=== PATIENT | female | born 2000 | race Caucasian/White ===

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

== ENCOUNTER 2020-09-26 12:32 | Emergency (ER) | payer SELFPAY ==
[~2020-09-26] VITALS: Ht 172 cm; Wt 82.7 kg
--- NOTE | 2020-09-26 13:10 | ED Neurological Problem ---
General Chief Complaint: Overdose Stated Complaint: OD Source: patient Exam Limitations: no limitations (LAUREN SHEPPARD APRN) History of Present Illness Date Seen by Provider: Sep 26, 2020 Time Seen by Provider: 13:08 Initial Comments To ER by private vehicle from [facility] where she presented with reports of a headache. She has a history of headaches. Yesterday evening she took allegedly 24 of the 325 mg aspirin in an attempt to control the headache. History of von Willebrand disease. Today complains of ear fullness and persistent headache with nausea. Refers to be called "[place]" and identifies as a male. Timing/Duration: 24 hours Severity: moderate Associated Symptoms: No confusion; nausea/vomiting, ringing in ears (LAUREN SHEPPARD APRN) Allergies and Home Medications Allergies Coded Allergies: escitalopram (Verified Adverse Reaction, Unknown, hallucinations, 05/17/16) Home Medications Ondansetron 4 Mg Tab.rapdis, 4 MG PO Q4H PRN for NAUSEA/VOMITING Prescribed by: SUHAS HUDSON on 08/24/19 0224 Patient Home Medication List Home Medication List Reviewed: Yes (LAUREN SHEPPARD APRN) Review of Systems Review of Systems Constitutional: see HPI Eyes: No Symptoms Reported Ears, Nose, Mouth, Throat: no symptoms reported Respiratory: no symptoms reported Gastrointestinal: nausea Genitourinary: no symptoms reported Musculoskeletal: no symptoms reported Skin: no symptoms reported Psychiatric/Neurological: No Symptoms Reported (LAUREN SHEPPARD APRN) Past Ttdblvy-Kkvugk-Oduvxp Hx Patient Social History 2nd Hand Smoke Exposure: No Recent Hopitalizations: No (LAUREN SHEPPARD APRN) Immunizations Up To Date Tetanus Booster (TDap): Less than 5yrs PED Vaccines UTD: Yes Date of Influenza Vaccine: Feb 08, 2016 (LAUREN SHEPPARD APRN) Seasonal Allergies Seasonal Allergies: No (LAUREN SHEPPARD APRN) Past Medical History Surgeries: Yes Tonsillectomy Respiratory: No Cardiac: No Neurological: No Reproductive Disorders: Yes (gender transitioning) Sexually Transmitted Disease: No HIV/AIDS: No Genitourinary: No Gastrointestinal: No Musculoskeletal: No Endocrine: No HEENT: No Cancer: No Psychosocial: Yes ADD/ADHD, Suicide Attempts, Bipolar, Depression Integumentary: No Blood Disorders: Yes Adverse Reaction/Blood Tranf: No (LAUREN SHEPPARD APRN) Physical Exam Vital Signs Vital Signs - First Documented 09/26/20 12:41 Temp 36.6 Pulse 92 Resp 18 B/P (MAP) 105/81 (89) Pulse Ox 99 O2 Delivery Room Air (SUHAS ROBLES MD) Vital Signs Capillary Refill : (LAUREN SHEPPARD APRN) Height, Weight, BMI Height: 5'6.00" Weight: 200lbs. oz. 90.285714fd; 28.00 BMI Method:Stated General Appearance: WD/WN, no apparent distress, other (alert and oriented GCS 15 pleasant no distress no vomiting laughing and joking with her friend at the bedside the all) HEENT: PERRL/EOMI, normal ENT inspection Neck: non-tender, full range of motion Respiratory: normal breath sounds, no respiratory distress, no accessory muscle use Cardiovascular: regular rate, rhythm, no murmur Gastrointestinal: normal bowel sounds, non tender, soft Extremities: normal range of motion, non-tender Neurologic/Psychiatric: alert, normal mood/affect, oriented x 3 Crainal Nerves: normal hearing, normal speech, PERRL Skin: normal color, warm/dry (LAUREN SHEPPARD APRN) Progress/Results/Core Measures Results/Orders Lab Results Laboratory Tests Test 09/26/20 13:05 09/26/20 13:25 09/26/20 13:33 09/26/20 15:41 Range/Units Blood Gas Puncture Site NA Blood Gas Patient Temperature NA Arterial Blood pH 7.46 H 7.37-7.43 Arterial Blood Partial Pressure CO2 29 L 35-45 MMHG Arterial Blood Partial Pressure O2 115 H 79-93 MMHG Arterial Blood HCO3 20 L 23-27 MMOL/L Arterial Blood Total CO2 20.8 L 21.0-31.0 MMOL/L Arterial Blood Oxygen Saturation 99 94-100 % Arterial Blood Base Excess -3.3 L -2.5-2.5 MMOL/L Yang Test NA Blood Gas Ventilator Setting NA Blood Gas Inspired Oxygen NA Sodium Level 144 135-145 MMOL/L Potassium Level 3.6 3.6-5.0 MMOL/L Chloride Level 110 H 98-107 MMOL/L Carbon Dioxide Level 19 L 21-32 MMOL/L Anion Gap 15 H 5-14 MMOL/L Blood Urea Nitrogen 10 7-18 MG/DL Creatinine 0.83 0.60-1.30 MG/DL Estimat Glomerular Filtration Rate > 60 BUN/Creatinine Ratio 12 Glucose Level 85 70-105 MG/DL Calcium Level 9.1 8.5-10.1 MG/DL Corrected Calcium 9.0 8.5-10.1 MG/DL Total Bilirubin 0.4 0.1-1.0 MG/DL Aspartate Amino Transf (AST/SGOT) 13 5-34 U/L Alanine Aminotransferase (ALT/SGPT) 13 0-55 U/L Alkaline Phosphatase 48 40-136 U/L Total Protein 6.8 6.4-8.2 GM/DL Albumin 4.1 3.2-4.5 GM/DL Serum Test, Qualitative NEGATIVE NEGATIVE Salicylates Level 29.2 H 24.0 H 5.0-20.0 MG/DL Acetaminophen Level < 10 L 10-30 UG/ML Serum Alcohol < 10 <10 MG/DL White Blood Count 11.5 H 4.3-11.0 10^3/uL Red Blood Count 4.30 3.80-5.11 10^6/uL Hemoglobin 13.6 11.5-16.0 g/dL Hematocrit 39 35-52 % Mean Corpuscular Volume 91 80-99 fL Mean Corpuscular Hemoglobin 32 25-34 pg Mean Corpuscular Hemoglobin Concent 35 32-36 g/dL Red Cell Distribution Width 11.9 10.0-14.5 % Platelet Count 243 130-400 10^3/uL Mean Platelet Volume 11.5 9.0-12.2 fL Immature Granulocyte % (Auto) 0 % Neutrophils (%) (Auto) 85 H 42-75 % Lymphocytes (%) (Auto) 10 L 12-44 % Monocytes (%) (Auto) 5 0-12 % Eosinophils (%) (Auto) 0 0-10 % Basophils (%) (Auto) 0 0-10 % Neutrophils # (Auto) 9.7 H 1.8-7.8 X 10^3 Lymphocytes # (Auto) 1.2 1.0-4.0 X 10^3 Monocytes # (Auto) 0.6 0.0-1.0 X 10^3 Eosinophils # (Auto) 0.0 0.0-0.3 10^3/uL Basophils # (Auto) 0.0 0.0-0.1 10^3/uL Immature Granulocyte # (Auto) 0.0 0.0-0.1 10^3/uL Urine Color YELLOW Urine Clarity SL CLOUDY Urine pH 6.0 5-9 Urine Specific [place] 1.020 1.016-1.022 Urine Protein 1+ H NEGATIVE Urine Glucose (UA) NEGATIVE NEGATIVE Urine Ketones 3+ H NEGATIVE Urine Nitrite NEGATIVE NEGATIVE Urine Bilirubin NEGATIVE NEGATIVE Urine Urobilinogen 0.2 < = 1.0 MG/DL Urine Leukocyte Esterase NEGATIVE NEGATIVE Urine RBC (Auto) NEGATIVE NEGATIVE Urine RBC NONE /HPF Urine WBC 0-2 /HPF Urine Squamous Epithelial Cells 0-2 /HPF Urine Crystals NONE /LPF Urine Bacteria TRACE /HPF Urine Casts NONE /LPF Urine Mucus NEGATIVE /LPF Urine Culture Indicated NO Urine Opiates Screen NEGATIVE NEGATIVE Urine Oxycodone Screen NEGATIVE NEGATIVE Urine Methadone Screen NEGATIVE NEGATIVE Urine Propoxyphene Screen NEGATIVE NEGATIVE Urine Barbiturates Screen NEGATIVE NEGATIVE Ur Tricyclic Antidepressants Screen NEGATIVE NEGATIVE Urine Phencyclidine Screen NEGATIVE NEGATIVE Urine Amphetamines Screen NEGATIVE NEGATIVE Urine Methamphetamines Screen NEGATIVE NEGATIVE Urine Benzodiazepines Screen NEGATIVE NEGATIVE Urine Cocaine Screen NEGATIVE NEGATIVE Urine Cannabinoids Screen NEGATIVE NEGATIVE Test 09/26/20 16:08 09/26/20 16:44 Range/Units Blood Gas Puncture Site RIGHT RADIAL Blood Gas Patient Temperature 97.7 Arterial Blood pH 7.43 7.37-7.43 Arterial Blood Partial Pressure CO2 29 L 35-45 MMHG Arterial Blood Partial Pressure O2 109 H 79-93 MMHG Arterial Blood HCO3 19 L 23-27 MMOL/L Arterial Blood Total CO2 19.7 L 21.0-31.0 MMOL/L Arterial Blood Oxygen Saturation 99 94-100 % Arterial Blood Base Excess -4.8 L -2.5-2.5 MMOL/L Yang Test YES-POS Blood Gas Ventilator Setting NO Blood Gas Inspired Oxygen ROOM AIR Prothrombin Time 14.8 H 12.2-14.7 SEC INR Comment 1.1 0.8-1.4 (SUHAS ROBLES MD) Vital Signs/I&O 09/26/20 09/26/20 12:41 17:33 Temp 36.6 Pulse 92 9 Resp 18 18 B/P (MAP) 105/81 (89) 104/78 Pulse Ox 99 100 O2 Delivery Room Air Room Air (SUHAS ROBLES MD) Progress Progress Note : Progress Note NAME: JULITO CORREA [facility] REC#: [id number] PT STATUS: REG ER : 2000 PHYSICIAN: LAUREN SHEPPARD APRN ADMIT DATE: 09/26/20/ER Draft Date of Exam:09/26/20 CT HEAD WO PROCEDURE: CT head without contrast. TECHNIQUE: Multiple contiguous axial images were obtained through the brain without the use of intravenous contrast. Auto Exposure Controls were utilized during the CT exam to meet ALARA standards for radiation dose reduction. INDICATION: Headache. History of bleeding disorder. Recent extensive aspirin ingestion. CORRELATION STUDY: None FINDINGS: The ventricles and sulci appearing unremarkable. Normal robledo-white differentiation is suggested. No definitive evidence for edema. No intracranial hemorrhage. Slightly low-lying cerebellar tonsils are present. Basilar cisterns are maintained. Bony calvarium is intact. Paranasal sinuses, probable cyst or polyp in the left maxillary sinus. IMPRESSION: 1. Negative for acute intracranial abnormality. Slightly low-lying cerebellar tonsils, mild Chiari malformation is not excluded. Consideration might be given to follow-up with MRI of the brain. Dictated on workstation # [id number] Dict: 09/26/20 1402 Trans: 09/26/20 1407 [facility] [id number] Interpreted by: ABRIL LOCK DO Electronically signed by: (LAUREN SHEPPARD APRN) Progress Note : Progress Note I was physically present in the emergency department as attending physician during the care of this patient, but I was not directly involved in this patient's care. (SUHAS ROBLES MD) Departure Communication (Admissions) [id number]/w [facility]a [place] from Poison Control. Recommends PT/INR then dc to home if richard. (LAUREN SHEPPADR APRN) Impression Primary Impression: Headache Qualified Codes: R51.9 - Headache, unspecified Additional Impression: Medication overdose Qualified Codes: T50.904A - Poisoning by unspecified drugs, medicaments and biological substances, undetermined, initial encounter Disposition: 01 HOME, SELF-CARE Condition: Stable Departure-Patient Inst. Decision time for Depature: 16:40 (LAUREN SHEPPARD APRN) Referrals: [facility] (PCP/Family) Primary Care Physician Add. Discharge Instructions: 1. Return to Er for any concerns 2. DO NOT TAKE ASPIRIN OR IBUPROFEN WITH YOUR VON WILLEBRANDS 3. Be careful with knives/shaving as you will bleed longer than usual given your von willebrands and the aspirin use. All discharge instructions reviewed with patient and/or family. Voiced understanding. Attending Physician Note: I was physically present in the emergency department as attending physician during the care of this patient, but I was not directly involved in this p atient's care. (SUHAS ROBLES MD) LAUREN SHEPPARD APRN Sep 26, 2020 13:10 SUHAS ROBLES MD Sep 27, 2020 10:02
[2020-09-26 13:15] LABS: ABG BASE EXCESS -3.3 MMOL/L (-2.5-2.5); ABG OXYGEN SATURATION 99 % (94-100); ABG PCO2 29 MMHG (35-45); ABG PH 7.46 (7.37-7.43); ABG PO2 115 MMHG (79-93); ABG TCO2 20.8 MMOL/L (21.0-31.0)
[2020-09-26 13:22] LABS: ALBUMIN 4.1 GM/DL (3.2-4.5); CHLORIDE 110 MMOL/L (98-107); POTASSIUM 3.6 MMOL/L (3.6-5.0); SODIUM 144 MMOL/L (135-145)
[2020-09-26 13:24] LABS: CALCIUM 9.1 MG/DL (8.5-10.1)
[2020-09-26 13:25] LABS: GLUCOSE 85 MG/DL (70-105); TOTAL PROTEIN 6.8 GM/DL (6.4-8.2)
[2020-09-26 13:26] LABS: CARBON DIOXIDE 19 MMOL/L (21-32)
[2020-09-26 13:27] LABS: BILIRUBIN,TOTAL 0.4 MG/DL (0.1-1.0)
[2020-09-26 13:29] LABS: ALKALINE PHOSPHATASE 48 U/L (40-136); CREATININE SERUM 0.83 MG/DL (0.60-1.30); GFR ESTIMATED > 60
[2020-09-26 13:30] LABS: BUN/CREATININE RATIO 12
[2020-09-26 13:32] LABS: ALANINE AMINOTRANSFERASE 13 U/L (0-55); SALICYLATE 29.2 MG/DL (5.0-20.0)
[2020-09-26 13:34] LABS: ACETAMINOPHEN < 10 UG/ML (10-30)
[2020-09-26 13:45] LABS: BASOPHILS % (AUTO) 0 % (0-10); EOSINOPHILS % (AUTO) 0 % (0-10); HEMATOCRIT 39 % (35-52); HEMOGLOBIN 13.6 g/dL (11.5-16.0); LYMPHOCYTES # (AUTO) 1.2 X 10^3 (1.0-4.0); LYMPHOCYTES % (AUTO) 10 % (12-44); MEAN CORPUSCULAR HEMOGLOBIN 32 pg (25-34); MEAN CORPUSCULAR HGB CONC 35 g/dL (32-36); MEAN CORPUSCULAR VOLUME 91 fL (80-99); MEAN PLATELET VOLUME 11.5 fL (9.0-12.2); MONOCYTES # (AUTO) 0.6 X 10^3 (0.0-1.0); MONOCYTES % (AUTO) 5 % (0-12); NEUTROPHILS # (AUTO) 9.7 X 10^3 (1.8-7.8); NEUTROPHILS % (AUTO) 85 % (42-75); PLATELET COUNT 243 10^3/uL (130-400); WHITE BLOOD COUNT 11.5 10^3/uL (4.3-11.0)
[2020-09-26] MEDS ORDERED: diphenhydrAMINE 50 MG/ML INJ (BENADRYL) IVP ONE (13:45)
[2020-09-26] MEDS ORDERED: KETOROLAC 30 MG/ML VIAL IVP ONE (13:45)
[2020-09-26] MEDS ORDERED: PROCHLORPERAZINE 10 MG/2ML INJ (COMPAZINE) IV ONE (13:45)
[2020-09-26] MEDS ORDERED: NS IV 1000 ML 1,000 ML IV SCH (13:45)
[2020-09-26 13:52] LABS: AMPHETAMINE SCREEN, URINE NEGATIVE (NEGATIVE); BARBITURATE SCREEN URINE NEGATIVE (NEGATIVE); BENZODIAZEPINES SCREEN URINE NEGATIVE (NEGATIVE); CANNABINOID SCREEN, URINE NEGATIVE (NEGATIVE); COCAINE SCREEN URINE NEGATIVE (NEGATIVE); METHADONE STAT NEGATIVE (NEGATIVE); METHAMPHETAMINE SCREEN URINE S NEGATIVE (NEGATIVE); OPIATE SCREEN URINE NEGATIVE (NEGATIVE); OXYCODONE STAT NEGATIVE (NEGATIVE); PROPOXYPHENE STAT NEGATIVE (NEGATIVE); TRICYCLIC ANTIDEPRESSANTS SCRE NEGATIVE (NEGATIVE)
--- NOTE | 2020-09-26 14:07 | Diagnostic Imaging Report ---
PROCEDURE: CT head without contrast. TECHNIQUE: Multiple contiguous axial images were obtained through the brain without the use of intravenous contrast. Auto Exposure Controls were utilized during the CT exam to meet ALARA standards for radiation dose reduction. INDICATION: Headache. History of bleeding disorder. Recent extensive aspirin ingestion. CORRELATION STUDY: None FINDINGS: The ventricles and sulci appearing unremarkable. Normal robledo-white differentiation is suggested. No definitive evidence for edema. No intracranial hemorrhage. Slightly low-lying cerebellar tonsils are present. Basilar cisterns are maintained. Bony calvarium is intact. Paranasal sinuses, probable cyst or polyp in the left maxillary sinus. IMPRESSION: 1. Negative for acute intracranial abnormality. Slightly low-lying cerebellar tonsils, mild Chiari malformation is not excluded. Consideration might be given to follow-up with MRI of the brain. Dictated by: Dictated on workstation # [id number]
[2020-09-26 14:17] LABS: BILIRUBIN,URINE NEGATIVE (NEGATIVE); CLARITY,URINE SL CLOUDY; COLOR,URINE YELLOW; GLUCOSE, URINE (UA) NEGATIVE (NEGATIVE); KETONES,URINE 3+ (NEGATIVE); LEUKOCYTE ESTERASE ,URINE NEGATIVE (NEGATIVE); NITRITE,URINE NEGATIVE (NEGATIVE); PROTEIN,URINE 1+ (NEGATIVE)
[2020-09-26 14:28] LABS: BACTERIA,URINE TRACE /HPF; SQUAMOUS EPITHELIAL CELL,UR 0-2 /HPF; WBC,URINE 0-2 /HPF
[2020-09-26 16:17] LABS: ABG BASE EXCESS -4.8 MMOL/L (-2.5-2.5); ABG OXYGEN SATURATION 99 % (94-100); ABG PCO2 29 MMHG (35-45); ABG PH 7.43 (7.37-7.43); ABG PO2 109 MMHG (79-93); ABG TCO2 19.7 MMOL/L (21.0-31.0); ALLENS TEST YES-POS
[2020-09-26 16:18] LABS: INSPIRED O2 ROOM AIR; PATIENT TEMP 97.7; VENTILATOR NO
[2020-09-26 17:12] LABS: INR 1.1 (0.8-1.4); PROTHROMBIN TIME PATIENT 14.8 SEC (12.2-14.7)
[2020-09-26 17:33] VITALS: BP 104/78
== END 2020-09-26 17:33 | disposition home or self-care (01) ==
LOC: EDUNIT# 12:32 → ER 12:36
DX: R51.9 Headache, unspecified (principal); T50.901A Poisoning by unspecified drugs, medicaments and biological substances, accidental (unintentional), initial encounter; Z88.8 Allergy status to other drugs, medicaments and biological substances
CPT/HCPCS: 70450; 80053; 80306; 81000; 82805; 84703; 85025; 85610; 99284; G0480 ×3; 36415; 80320; 80329

== ENCOUNTER 2021-05-02 03:21 | Emergency (ER) | payer SELFPAY ==
[~2021-05-02] VITALS: Ht 177.8 cm; Wt 82.7 kg
[2021-05-02 04:31] LABS: BASOPHILS % (AUTO) 0 % (0-10); EOSINOPHILS % (AUTO) 0 % (0-10); HEMATOCRIT 35 % (35-52); HEMOGLOBIN 11.5 g/dL (11.5-16.0); LYMPHOCYTES # (AUTO) 1.7 10^3/uL (1.0-4.0); LYMPHOCYTES % (AUTO) 18 % (12-44); MEAN CORPUSCULAR HEMOGLOBIN 31 pg (25-34); MEAN CORPUSCULAR HGB CONC 33 g/dL (32-36); MEAN CORPUSCULAR VOLUME 94 fL (80-99); MEAN PLATELET VOLUME 11.2 fL (9.0-12.2); MONOCYTES # (AUTO) 0.6 10^3/uL (0.0-1.0); MONOCYTES % (AUTO) 6 % (0-12); NEUTROPHILS # (AUTO) 7.5 10^3/uL (1.8-7.8); NEUTROPHILS % (AUTO) 76 % (42-75); PLATELET COUNT 270 10^3/uL (130-400); WHITE BLOOD COUNT 9.9 10^3/uL (4.3-11.0)
[2021-05-02 04:43] LABS: CHLORIDE 106 MMOL/L (98-107); PROTHROMBIN TIME PATIENT 13.4 SEC (12.2-14.7); SODIUM 140 MMOL/L (135-145)
[2021-05-02 04:44] LABS: ALBUMIN 4.1 GM/DL (3.2-4.5)
[2021-05-02 04:45] LABS: CALCIUM 9.4 MG/DL (8.5-10.1)
[2021-05-02 04:46] LABS: GLUCOSE 101 MG/DL (70-105)
[2021-05-02 04:47] LABS: CARBON DIOXIDE 25 MMOL/L (21-32); TOTAL PROTEIN 6.7 GM/DL (6.4-8.2)
[2021-05-02 04:48] LABS: BILIRUBIN,TOTAL 0.3 MG/DL (0.1-1.0)
[2021-05-02 04:50] LABS: ALKALINE PHOSPHATASE 52 U/L (40-136); CREATININE SERUM 0.72 MG/DL (0.60-1.30); GFR ESTIMATED 103
[2021-05-02 04:51] LABS: ACETAMINOPHEN < 10 UG/ML (10-30); BUN/CREATININE RATIO 13
[2021-05-02 04:53] LABS: ALANINE AMINOTRANSFERASE 18 U/L (0-55); SALICYLATE < 5.0 MG/DL (5.0-20.0)
[2021-05-02 05:39] LABS: BILIRUBIN,URINE NEGATIVE (NEGATIVE); CLARITY,URINE CLEAR; COLOR,URINE YELLOW; GLUCOSE, URINE (UA) NEGATIVE (NEGATIVE); KETONES,URINE NEGATIVE (NEGATIVE); LEUKOCYTE ESTERASE ,URINE TRACE (NEGATIVE); NITRITE,URINE NEGATIVE (NEGATIVE); PROTEIN,URINE NEGATIVE (NEGATIVE)
[2021-05-02 05:50] LABS: BACTERIA,URINE FEW /HPF; WBC,URINE 0-2 /HPF
[2021-05-02 05:58] LABS: AMPHETAMINE SCREEN, URINE NEGATIVE (NEGATIVE); BARBITURATE SCREEN URINE NEGATIVE (NEGATIVE); BENZODIAZEPINES SCREEN URINE NEGATIVE (NEGATIVE); CANNABINOID SCREEN, URINE NEGATIVE (NEGATIVE); COCAINE SCREEN URINE NEGATIVE (NEGATIVE); METHADONE STAT NEGATIVE (NEGATIVE); METHAMPHETAMINE SCREEN URINE S NEGATIVE (NEGATIVE); OPIATE SCREEN URINE NEGATIVE (NEGATIVE); OXYCODONE STAT NEGATIVE (NEGATIVE); PROPOXYPHENE STAT NEGATIVE (NEGATIVE); TRICYCLIC ANTIDEPRESSANTS SCRE NEGATIVE (NEGATIVE)
--- NOTE | 2021-05-02 06:39 | ED Psychosocial ---
General Chief Complaint: Psych/Social Disorder Stated Complaint: CUT ON LEG Nursing Triage Note: PATIENT VOICES SHE HAS STARTED CUTTING AGAIN RECENTLY. SHE STATES SHE HAS HAD INCREASED STRESS R/T HER JOB AND LIVING SITUATION. ON SUNDAY IS WHEN THE INITIAL NEFTALY WERE MADE AND HAD STOPPED BLEEDING HOWEVER TONIGHT WHEN SHE GOT IN THE SHOWER SHE NOTICED ONE OF THE CUTS WOULD NOT STOP BLEEDING. SHE TOLD HER ROOM MATE AND THE ROOM MATE THEN CALLED 911 FOR AMBULANCE TRANSPORT. Source: patient Exam Limitations: no limitations (SUHAS ROBLES MD) History of Present Illness Date Seen by Provider: May 02, 2021 Time Seen by Provider: 03:26 Initial Comments This 20-year-old young lady who prefers the name [place] and male or gender neutral pronouns presents to the emergency room with a primary complaint of bleeding wound on her right thigh. The wounds were initially made on April 29 and were self-inflicted. She had bleeding through the night that night but bleeding stopped by the time she woke up. Then in the shower this evening the wound broke open and began bleeding. It did not stop after a few hours so she presented to the emergency room. Although the laceration on the thigh was not an attempt to seriously harm, she does admit to having suicidal thinking in recent days. She cites a particularly stressful series of jobs recently that she started and left. She receives her medical care and mental health services at [facility] in [place]. She denies any drug or alcohol use except occasional alcohol. She had part of a hard lemonade tonight. She has von Willebrand's disease which contributes to her bleeding. She does not know when her last tetanus shot was. The thigh laceration is actively bleeding at the time of interview (SUHAS ROBLES MD) Allergies and Home Medications Allergies Coded Allergies: escitalopram (Verified Adverse Reaction, Unknown, hallucinations, 05/17/16) Patient Home Medication List Home Medication List Reviewed: Yes (SUHAS ROBLES MD) Ondansetron (Ondansetron Odt) 4 Mg Tab.rapdis, 4 MG PO Q4H PRN for NAUSE A/VOMITING Prescribed by: SUHAS HUDSON on 08/24/19 0224 Review of Systems Constitutional: no symptoms reported EENTM: no symptoms reported Respiratory: no symptoms reported Cardiovascular: no symptoms reported Gastrointestinal: no symptoms reported Genitourinary: no symptoms reported : No Control/STD Prophylaxis: None Musculoskeletal: see HPI Skin: see HPI Psychiatric/Neurological: See HPI (SUHAS ROBLES MD) Past Uqqthps-Oupjuc-Waqefh Hx Patient Social History Tobacco Use?: No Use of E-Cig and/or Vaping dev: No Substance use?: No Alcohol Use?: Yes Alcohol type: Hard Liquor Alcohol Frequency: Once in a while Pt feels they are or have been: No (SUHAS ROBLES MD) Immunizations Up To Date Tetanus Booster (TDap): Less than 5yrs PED Vaccines UTD: Yes Influenza Vaccine Up-to-Date: No; Not Current First/Initial COVID19 Vaccinat: DECLINED (SUHAS ROBLES MD) Seasonal Allergies Seasonal Allergies: No (SUHAS ROBLES MD) Past Medical History Surgeries: Yes Tonsillectomy Respiratory: No Cardiac: No Neurological: No Reproductive Disorders: Yes (gender transitioning) Sexually Transmitted Disease: No HIV/AIDS: No Genitourinary: No Gastrointestinal: No Musculoskeletal: No Endocrine: No HEENT: No Cancer: No Psychosocial: Yes ADD/ADHD, Suicide Attempts, Bipolar, Personality Disorder, Depression Integumentary: No Blood Disorders: Yes (VON WILLEBRAND) Adverse Reaction/Blood Tranf: No (SUHAS ROBLES MD) Physical Exam Vital Signs - First Documented 05/02/21 03:21 Temp 36.5 Pulse 82 Resp 18 B/P (MAP) 113/85 (94) Pulse Ox 99 O2 Delivery Room Air (JULES DILLON) Capillary Refill : (SUHAS ROBLES MD) Height, Weight, BMI Height: 5'6.00" Weight: 200lbs. oz. 90.936797pt; 26.00 BMI Method:Stated General Appearance: WD/WN, no apparent distress HEENT: PERRL/EOMI, normal ENT inspection Respiratory: lungs clear, normal breath sounds, no respiratory distress Cardiovascular: regular rate, rhythm, no edema, no murmur Gastrointestinal: non tender, soft Extremities: no pedal edema, other (Extensive scarring of the right thigh. There are some newer lacerations with 1 actively bleeding at the time of exam.) Neurologic/Psychiatric: tube rebuilder II-XII nml as tested, no motor/sensory deficits, alert, oriented x 3, other (Suicidal ideation expressed) Appearance/Memory: appropriate appearance, appropriate insight, neat Behavior/Eye Contact: cooperative, normal speech Thoughts/Hallucinations: no apparent hallucination Skin: normal color, warm/dry (SUHAS ROBLES MD) Procedures/Interventions Wound Location: Lower Extremities Other Wound Location Right proximal anterior thigh Wound Length (cm): 3 Wound's Depth, Shape: superficial, linear, sub Q Wound Explored: clean Betadine Prep?: Yes Anesthesia: Lidocaine w/ Epi Suture: Prolene Suture Size: 4-0 Number of Sutures: 1 Sterile Dressing Applied?: No Progress Wound was cleaned with chlorhexidine wipes and prepped with Betadine. Local anesthesia was provided with lidocaine with epinephrine. Wound was sewn over with 1 figure of 8 suture which resolved the bleeding. (SUHAS ROBLES MD) Progress/Results/Core Measures Results/Orders Lab Results Laboratory Tests Test 05/02/21 04:20 05/02/21 05:30 05/02/21 06:10 Range/Units White Blood Count 9.9 4.3-11.0 10^3/uL Red Blood Count 3.76 L 3.80-5.11 10^6/uL Hemoglobin 11.5 11.5-16.0 g/dL Hematocrit 35 35-52 % Mean Corpuscular Volume 94 80-99 fL Mean Corpuscular Hemoglobin 31 25-34 pg Mean Corpuscular Hemoglobin Concent 33 32-36 g/dL Red Cell Distribution Width 11.8 10.0-14.5 % Platelet Count 270 130-400 10^3/uL Mean Platelet Volume 11.2 9.0-12.2 fL Immature Granulocyte % (Auto) 0 % Neutrophils (%) (Auto) 76 H 42-75 % Lymphocytes (%) (Auto) 18 12-44 % Monocytes (%) (Auto) 6 0-12 % Eosinophils (%) (Auto) 0 0-10 % Basophils (%) (Auto) 0 0-10 % Neutrophils # (Auto) 7.5 1.8-7.8 10^3/uL Lymphocytes # (Auto) 1.7 1.0-4.0 10^3/uL Monocytes # (Auto) 0.6 0.0-1.0 10^3/uL Eosinophils # (Auto) 0.0 0.0-0.3 10^3/uL Basophils # (Auto) 0.0 0.0-0.1 10^3/uL Immature Granulocyte # (Auto) 0.0 0.0-0.1 10^3/uL Prothrombin Time 13.4 12.2-14.7 SEC INR Comment 1.0 0.8-1.4 Activated Partial Thromboplast Time 32 24-35 SEC Sodium Level 140 135-145 MMOL/L Potassium Level 4.0 3.6-5.0 MMOL/L Chloride Level 106 98-107 MMOL/L Carbon Dioxide Level 25 21-32 MMOL/L Anion Gap 9 5-14 MMOL/L Blood Urea Nitrogen 9 7-18 MG/DL Creatinine 0.72 0.60-1.30 MG/DL Estimat Glomerular Filtration Rate 103 BUN/Creatinine Ratio 13 Glucose Level 101 70-105 MG/DL Calcium Level 9.4 8.5-10.1 MG/DL Corrected Calcium 9.3 8.5-10.1 MG/DL Total Bilirubin 0.3 0.1-1.0 MG/DL Aspartate Amino Transf (AST/SGOT) 17 5-34 U/L Alanine Aminotransferase (ALT/SGPT) 18 0-55 U/L Alkaline Phosphatase 52 40-136 U/L Total Protein 6.7 6.4-8.2 GM/DL Albumin 4.1 3.2-4.5 GM/DL TSH [place] Testing 2.42 0.35-4.94 UIU/ML Serum Test, Qualitative NEGATIVE NEGATIVE Salicylates Level < 5.0 L 5.0-20.0 MG/DL Acetaminophen Level < 10 L 10-30 UG/ML Serum Alcohol < 10 <10 MG/DL Urine Color YELLOW Urine Clarity CLEAR Urine pH 6.0 5-9 Urine Specific [place] 1.025 H 1.016-1.022 Urine Protein NEGATIVE NEGATIVE Urine Glucose (UA) NEGATIVE NEGATIVE Urine Ketones NEGATIVE NEGATIVE Urine Nitrite NEGATIVE NEGATIVE Urine Bilirubin NEGATIVE NEGATIVE Urine Urobilinogen 0.2 < = 1.0 MG/DL Urine Leukocyte Esterase TRACE H NEGATIVE Urine RBC (Auto) 2+ H NEGATIVE Urine RBC 2-5 H /HPF Urine WBC 0-2 /HPF Urine Squamous Epithelial Cells 2-5 /HPF Urine Crystals NONE /LPF Urine Bacteria FEW H /HPF Urine Casts NONE /LPF Urine Mucus NEGATIVE /LPF Urine Culture Indicated NO Urine Opiates Screen NEGATIVE NEGATIVE Urine Oxycodone Screen NEGATIVE NEGATIVE Urine Methadone Screen NEGATIVE NEGATIVE Urine Propoxyphene Screen NEGATIVE NEGATIVE Urine Barbiturates Screen NEGATIVE NEGATIVE Ur Tricyclic Antidepressants Screen NEGATIVE NEGATIVE Urine Phencyclidine Screen NEGATIVE NEGATIVE Urine Amphetamines Screen NEGATIVE NEGATIVE Urine Methamphetamines Screen NEGATIVE NEGATIVE Urine Benzodiazepines Screen NEGATIVE NEGATIVE Urine Cocaine Screen NEGATIVE NEGATIVE Urine Cannabinoids Screen NEGATIVE NEGATIVE SARS-CoV-2 RNA (RT-PCR) Not Detected Not Detecte (JULES DILLON) My Orders Orders - JULES DILLON General/Regular (05/02/21 Breakfast) (JULES DILLON) Medications Given in ED Current Medications Medications Dose Ordered Sig/Ian Route Start Time Stop Time Status Last Admin Dose Admin Diphtheria/ Tetanus/Acell Pertussis 0.5 ml ONCE ONCE IM 05/02/21 06:45 05/02/21 06:46 DC 05/02/21 08:01 0.5 ML (JULES DILLON) Vital Signs/I&O 05/02/21 05/02/21 03:21 08:42 Temp 36.5 Pulse 82 88 Resp 18 18 B/P (MAP) 113/85 (94) 108/75 Pulse Ox 99 O2 Delivery Room Air (JULES DILLON) Blood Pressure Mean: 94 Progress Progress Note : Time: 06:47 Progress Note Patient has been medically cleared. Screening has been requested with [facility]. Care is being transitioned to Dr. Dillon at this time. Tetanus booster will be administered. (SUHAS ROBLES MD) Progress Note : Time: 07:55 Progress Note [facility] has concluded their telehealth mental health screening visit. They say that they are on the fence because the patient is suicidal with a plan. The patient told her that if they recommend inpatient hospitalization that she would be okay with doing that but she also wants to go home. They are going to speak to their building and grounds supervisor at [facility] and call us back with a plan. We are okay either direction with following their recommendation. I agree with the above documented history and physical exam. Patient is medically cleared and her b leeding is stabilized. (JULES DILLON) Initial ECG Impression Date: May 02, 2021 Initial ECG Impression Time: 04:16 Initial ECG Rate: 98 Initial ECG Rhythm: Normal Sinus Initial ECG Intervals: Normal Initial ECG Impression: Normal Comment Normal sinus rhythm with no ST elevation or depression. No abnormal intervals or axis deviation. (SUHAS ROBLES MD) Departure Impression Primary Impression: Laceration Additional Impression: Suicidal ideation Disposition: XFER SHT-TRM HOSP Condition: Stable Transfer Transfer Reason: Exceeds level of care (No inpatient psychiatry) Time Spoke to Accepting Phy: 13:[address] Espana accepts the patient to [facility] in [place], [place]. Patient is still voluntary to go. We are working on getting a hold of private transport. Method of Transfer: Private Vehicle (JULES DILLON) Departure-Patient Inst. Referrals: [facility] (PCP/Family) Primary Care Physician SUHAS ROBLES MD May 02, 2021 06:39 JULES DILLON May 02, 2021 07:56
[2021-05-02] MEDS ORDERED: TETANUS,DIPTH,PERTUSS P/F (BOOSTRIX) 0.5 ML VIAL IM ONE (06:45)
[2021-05-02 15:00] VITALS: BP 102/58
== END 2021-05-02 15:01 | disposition short-term general hospital (02) ==
LOC: EDUNIT# 03:22 → ER 03:24
DX: S71.111A Laceration without foreign body, right thigh, initial encounter (principal); Z23 Encounter for immunization; Z20.822 Contact with and (suspected) exposure to COVID-19; X78.9XXA Intentional self-harm by unspecified sharp object, initial encounter
CPT/HCPCS: 80053; 80306; 81000; 84443; 84703; 85025; 85610; 85730; 87636; 99283; G0480 ×3; 36415; 80320; 80329; 90715